=== PATIENT | male | born 1975 | race Caucasian/White ===

== ENCOUNTER 2023-06-09 17:53 | Emergency (ER) | payer BC, MEDICAID ==
[2023-06-09 18:11] VITALS: BP 154/88; O2SAT 98
--- NOTE | 2023-06-09 18:43 | ED Physician Documentation ---
History of Present Illness - Stated complaint Stated Complaint: ALLERGIC REACTION - Chief complaint Chief Complaint: Allergic Rx - Additonal information Additional information: 47-year-old male presents emergency department for what he describes as hypersensitivity/allergic reaction to mold. Patient says that he has had allergy testing in and was not found to have any anaphylaxis but allergy to mold he was not prescribed an EpiPen for this at this time. Patient says that he went into closet that has confirmed mold in it and started to feel genealized itching with throat squeezing sensation. He went outside immediately and noticed symptoms resolved but is now concerned because he states "I feel like my body just ran a marathon" Denies any throat swelling, tongue swelling, hives, or shortness of breath. PD PAST MEDICAL HISTORY - Past Medical History Past Medical History: No - Past Surgical History Past Surgical History: No General: Cholecystectomy - Allergies Allergies/Adverse Reactions: Allergies Allergy/AdvReac Type Severity Reaction Status Date / Time iodine Allergy Anaphylaxis Verified 06/09/23 18:11 mold Allergy Itching Verified 06/09/23 18:11 - Social History Does the pt smoke?: No Smoking Status: Never smoker - Immunizations Immunizations are current?: No PD ED PE NORMAL - Vitals Vital signs reviewed: Yes - General General: Alert and oriented X 3, No acute distress, Well developed/nourished - HEENT HEENT: Atraumatic, PERRL, EOMI, Moist mucous membranes, Pharynx benign - Neck Neck: No adenopathy - Cardiac Cardiac: RRR, Strong equal pulses - Respiratory Respiratory: No respiratory distress, Clear bilaterally - Abdomen Abdomen: Normal bowel sounds, Soft, Non tender - Derm Derm: Normal color, Warm and dry, No rash, Other (no urticaria) - Psych Psych: Normal mood, Normal affect Results - Vitals Vitals: Vital Signs - 24 hr 06/09/23 17:56 Temperature 36.4 C L Heart Rate 88 Respiratory 16 Rate Blood Pressure 154/88 H O2 Saturation 98 Oxygen O2 Source Room air PD Medical Decision Making - ED course ED course: This patient presents with symptoms consistent with acute hypersensitivity reaction, likely acute reaction to mold exposure. Presentation not consistent with acute anaphylaxis (lack of pulmonary, dermatologic, cardiovascular or GI symptoms, lack of hypotension or exposure to known allergen), angioedema, serum sickness (no recent drug exposure, lacks fevers, arthralgias). No evidence of airway compromise or shock at this time. Patient was offered steroids but he ki ndly declined he was also offered Benadryl was that he would take this at home before he goes to bed. Patient was agreeable to take 1 dose of Zyrtec and famotidine here in the ER to see if this would help with symptoms. Told to follow-up with lead cargoman and primary care provider outpatient return precautions given he was offered to stay for a while for monitoring but he declined. I believe that patient is safe for discharge at this time. All questions answered Departure - Departure Disposition: Home, Self Care Clinical Impression: Mold exposure Allergic reaction Qualifiers: Encounter type: initial encounter Qualified Code(s): T78.40XA - Allergy, unspecified, initial encounter Instructions: ED Allergic Reaction General Other Comments: Thank you for trusting us with your care, we have evaluated you for your allergic reaction to mold exposure. We have given you Zyrtec as well as famotidine here in the emergency department we offered steroids and Benadryl but you said that you would Like to decline steroids at this point in time and he would take Benadryl tonight before you go to bed. I would follow-up with your lead cargoman to see if any repeat testing needs to be done after that you are safe for discharge at this time we offered to monitor your here for a little bit but you said that he felt comfortable going home. I would avoid that area in house for couple days please come back to the emergency department for having any increased work of breathing or shortness of breath or any other concerning symptoms. Forms: PCP List Discharge Date/Time: 06/09/23 19:24
[2023-06-09] MEDS: CETIRIZINE 10 MG TABLET PO STA (18:49)
[2023-06-09] MEDS: FAMOTIDINE 20 MG TABLET PO STA (18:49)
== END 2023-06-09 19:24 | disposition home or self-care (01) ==
LOC: ED 17:53
DX: Z77.120 Contact with and (suspected) exposure to mold (toxic) (principal); R07.0 Pain in throat; L29.9 Pruritus, unspecified; T78.40XA Allergy, unspecified, initial encounter
CPT/HCPCS: 99282; 99283; A9270